=== PATIENT | female | born 1975 ===

== ENCOUNTER 2017-06-17 12:53 | Emergency (ER) | payer MEDICAID ==
[2017-06-17 12:59] VITALS: BP 114/77; PULSE 71; RESP 20; TEMP 97.3; O2SAT 97
--- NOTE | 2017-06-17 13:45 | C.PDOC ---
History Of Present Illness Patient is a 42 y/o female who presents to the ED with a complaint of shooting pain from lower left wrist to forearm. 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 No other physical complaints at this time. Time Seen by Provider: 06/17/17 13:06 Chief Complaint (Nursing): Upper Extremity Problem/Injury History Per: Patient History/Exam Limitations: no limitations Current Symptoms Are (Timing): Still Present Recent travel outside of the [place]: No Past Medical History Reviewed: Historical Data, Nursing Documentation, Vital Signs Vital Signs: Last Vital Signs Temp 97.3 F L 06/17/17 12:58 Pulse 71 06/17/17 12:58 Resp 20 06/17/17 12:58 BP 114/77 06/17/17 12:58 Pulse Ox 97 06/17/17 14:14 - Medical History PMH: No Chronic Diseases Surgical History: No Surg Hx Family History: States: No Known Family Hx - Social History Hx Tobacco Use: No Hx Alcohol Use: Yes (occasional) Hx Substance Use: No - Immunization History Hx Tetanus Toxoid Vaccination: Yes Hx Influenza Vaccination: No Hx Pneumococcal Vaccination: No Review Of Systems Musculoskeletal: Positive for: Arm Pain (left ) Physical Exam - Physical Exam Appears: Well, Non-toxic, No Acute Distress Skin: Normal Color, Warm, No Rash Head: Atraumatic, Normacephalic Eye(s): bilateral: Normal Inspection Extremity: Tenderness (left wrist), No Swelling, Other (Tinel's and Phalen's tests positive, left wrist) ED Course And Treatment O2 Sat by Pulse Oximetry: 97 Progress Note: Tinel's and Phalen's tests positive. Wrist Splint applied to left arm by RN without difficulty. Patient is stable for discharge. Disposition - Disposition Referrals: Josy Renner MD [Staff Provider] - Disposition: HOME/ ROUTINE Disposition Time: 13:43 Condition: STABLE Additional Instructions: Follow up with PMD and Hand specialist within 2-3 days. Return to ED if feel worse. Prescriptions: Ibuprofen [Motrin Tab] 600 mg PO Q8 #30 tab Instructions: Carpal Tunnel Syndrome, Carpal Tunnel Exercises Forms: [facility] ([place]) - Clinical Impression Clinical Impression: Carpal tunnel syndrome - Scribe Statement The provider has reviewed the documentation as recorded by the Nazarioibcarmen Nayak All medical record entries made by the Scribe were at my direction and personally dictated by me. I have reviewed the chart and agree that the record accurately reflects my personal performance of the history, physical exam, medical decision making, and the department course for this patient. I have also personally directed, reviewed, and agree with the discharge instructions and disposition.
== END 2017-06-17 13:53 | disposition home or self-care (01) ==
LOC: C.ER 12:53
DX: G56.02 Carpal tunnel syndrome, left upper limb (principal)